=== PATIENT | male | born 1975 | race Caucasian/White ===

== ENCOUNTER 2016-11-27 14:34 | Emergency (ER) | payer SELFPAY ==
[~2016-11-27] VITALS: Ht 185.4 cm; Wt 90.0 kg
[~2016-11-27 14:34] MED LIST: ALBU1AER INH; PRED20 PO
[2016-11-27 14:36] VITALS: BP 141/97; PULSE 74; RESP 16; TEMP 98.5; O2SAT 98
--- NOTE | 2016-11-27 14:54 | PD ---
HPI Chief Complaint: Cold / Flu Symptoms Time Seen by Provider: 14:54 Travel History International Travel<30 days: No Contact w/Intl Traveler<30days: No Traveled to known affect area: No History of Present Illness HPI Patient presents to emergency department for evaluation of cough and chest congestion worsening over the last week. Patient states initially he thought that hit the flu. He was with fever. He is nauseous. His vomiting. He was lightheaded. This has resolved and now he has a cough that has settled in his chest. He states he is unable to produce any mucus. It is dry and nagging. States that it is difficult to take a deep breath he has he feels like his chest is tight. Denies any pain. No focal deficits or weakness. No nausea or vomiting. No other symptoms to report. PFSH Past Medical History Arthritis: No Asthma: No Anxiety: Yes Depression: Yes (HX SUICIDE ATTEMPTS) Heart Rhythm Problems: No Cancer: No High Cholesterol: No Chemotherapy: No Chest Pain: No Congestive Heart Failure: No COPD: No Cerebrovascular Accident: No Diabetes: No Diminished Hearing: No GERD: Yes Headaches: No Hepatitis: No Hiatal Hernia: No Hypertension: No Kidney Stones: No Reproductive: No Immunizations Current: Yes Migraines: No Myocardial Infarction: No Renal Failure: No Seizures: No Sickle Cell Disease: No Sleep Apnea: No Thyroid Disease: No Ulcer: No Past Surgical History Abdominal Surgery: No AICD: No Appendectomy: No Arteriovenous Shunt: No Cardiac Surgery: No Cholecystectomy: No Ear Surgery: No Endocrine Surgery: Yes Eye Surgery: Yes Genitourinary Surgery: No Gynecologic Surgery: No Insulin Pump: No Joint Replacement: No Oral Surgery: No Pacemaker: No Thoracic Surgery: No Social History Alcohol Use: No Tobacco Use: No Substance Use: No (HX 'CRACK") Allergies-Medications (Allergen,Severity, Reaction): Coded Allergies: No Known Allergies (Verified , 06/26/16) Reported Meds & Prescriptions Reported Meds & Active Scripts Active Proair Hfa 8.5 GM Inh (Albuterol Sulfate) 90 Mcg/Act Aer 2 Puff INH Q4H PRN 108 mcg/actuation Prednisone 50 Mg Tab 50 Mg PO DAILY 5 Days Deltasone (Prednisone) 20 Mg Tab 40 Mg PO DAILY 4 Days Proair Hfa (Albuterol Sulfate) 8.5 Gm Aero 2 Puff INH Q4-6H PRN * SHAKE WELL BEFORE USE * Review of Systems Except as stated in HPI: all other systems reviewed are Neg Physical Exam Narrative GENERAL: Well-nourished, well-developed patient in no acute distress SKIN: Warm and dry. HEAD: Normocephalic. EYES: No scleral icterus. No injection or drainage. NECK: Supple, trachea midline. No JVD or lymphadenopathy. CARDIOVASCULAR: Regular rate and rhythm without murmurs, gallops, or rubs. RESPIRATORY: Breath sounds diminished, with a intermittent inspiratory wheeze, equal bilaterally. No accessory muscle use. GASTROINTESTINAL: Abdomen soft, non-tender, nondistended. MUSCULOSKELETAL: No cyanosis, or edema. BACK: Nontender without obvious deformity. No CVA tenderness. Data Data Last Documented VS Vital Signs Date Time Temp Pulse Resp B/P Pulse Ox O2 Delivery O2 Flow Rate FiO2 11/27/16 16:02 98 21 11/27/16 14:36 98.5 74 16 141/97 Orders Chest, Single Ap (11/27/16 ) Albuterol-Ipratropium Neb (Duoneb Neb) (11/27/16 15:00) Influenzae A/B Antigen (11/27/16 14:54) MDM Medical Decision Making Medical Screen Exam Complete: Yes Emergency Medical Condition: Yes Medical Record Reviewed: Yes Differential Diagnosis Bronchitis versus influenza versus pneumonia versus costochondritis versus other viral illness Narrative Course 41-year-old male presents to emergency department for evaluation. Patient does have a dry cough with intermittent history wheeze. He is given DuoNeb treatment here verbalizes improvement in his symptoms. Chest x-rays without acute cardiopulmonary disease. Influenza is negative. Patient is discharged home with symptomatic treatment of a likely viral bronchitis. He is encouraged to follow-up with primary care provider and return immediately with any acute worsening of symptoms. Diagnosis Primary Impression: Bronchitis Referrals: Primary Care Physician Patient Instructions: Acute Bronchitis (ED), General Instructions Additional Instructions: Humidify air may help to alleviate symptoms Tylenol and/or ibuprofen as discharge on package as needed for fever and/or pain Continue [id number] cough and cold medication as directed on package as needed Return immediately to the emergency department with any acute worsening of symptoms Med/Other Pt SpecificInfo: Prescription(s) given Scripts Albuterol 8.5 GM Inh (Proair Hfa 8.5 GM Inh)90 Mcg/Act Aer2 Puff INH Q4H PRN ( SHORTNESS OF BREATH) #1 INHALER Ref 0 108 mcg/actuation Prov:Thania Harvey 11/27/16 Prednisone 50 Mg Tab50 Mg PO DAILY 5 Days Ref 0 Prov:Thania Harvey 11/27/16 Disposition: 01 DISCHARGE HOME Condition: Stable Thania Harvey Nov 27, 2016 14:54
[2016-11-27] MEDS ORDERED: RESP: ALBUTEROL 2.5 MG/IPRATROPIUM 0.5 MG NEB (SCH) NEB ONE (15:00)
--- NOTE | 2016-11-27 15:27 | RADRPT ---
EXAM DATE/TIME: 11/27/2016 15:05 [facility] COMPARISON: CHEST SINGLE AP, January 15, 2015, 11:04. INDICATIONS : Coughing, short of breath for 2 weeks, light smoker MEDICAL HISTORY : None. SURGICAL HISTORY : None. ENCOUNTER: Initial ACUITY: 2 weeks PAIN SCORE: 0/10 LOCATION: Bilateral chest FINDINGS: A single view of the chest demonstrates the lungs to be symmetrically aerated without evidence of mas s, infiltrate or effusion. The cardiomediastinal contours are unremarkable. Osseous structures are intact. CONCLUSION: No acute disease. Geoffrey Strange MD FACR on November 27, 2016 at 15:26 Board Certified Radiologist. This report was verified electronically.
[2016-11-27] MEDS ORDERED: ALBUAER3 INH (15:42)
[2016-11-27] MEDS ORDERED: PRED50 PO (15:42)
[2016-11-27 16:02] VITALS: O2SAT 98
== END 2016-11-27 19:02 | disposition home or self-care (01) ==
LOC: NETRI 14:34
DX: J40 Bronchitis, not specified as acute or chronic (principal); F41.8 Other specified anxiety disorders; F14.21 Cocaine dependence, in remission
CPT/HCPCS: 71010; 87804; 94664; 99283